=== PATIENT | female | born 1965 | race Caucasian/White ===

== ENCOUNTER 2023-02-17 08:41 | Outpatient (CLI) | payer BC | END 2023-02-17 23:59 | disposition home or self-care (01) | LOC: VAS 08:41 | PROVIDERS: ATTEND Specialist | DX: I70.0 Atherosclerosis of aorta (principal) | CPT/HCPCS: 93978 ==

== ENCOUNTER 2023-03-24 10:33 | Emergency (ER) | payer BC ==
[~2023-03-24] VITALS: Ht 170.2 cm; Wt 47.7 kg
[2023-03-24 11:02] VITALS: TEMP 99.3
[2023-03-24 12:33] LABS: EOSINOPHILS % (AUTO) 0.1 % (0-6); HEMOGLOBIN 15.8 g/dl (12.0-16.0); LYMPHOCYTES # (AUTO) 0.6 X10'3 (1.1-4.8); MEAN CORPUSCULAR HEMOGLOBIN 26.9 PG (27.0-31.0); MEAN CORPUSCULAR HGB CONC 32.6 g/dL (33.0-36.5); MONOCYTES # (AUTO) 0.5 X10'3 (0-0.9); NEUTROPHILS # (AUTO) 8.5 X10'3 (1.8-7.7); RED CELL DISTRIBUTION WIDTH 14.7 % (11.5-14.5)
[2023-03-24 12:34] LABS: BASOPHILS % (AUTO) 0.5 % (0-1); HEMATOCRIT 48.5 % (35.0-45.0); LYMPHOCYTES % (AUTO) 6.6 % (21-51); MEAN CORPUSCULAR VOLUME 82.3 FL (78-98); MONOCYTES % (AUTO) 5.3 % (2-12); NEUTROPHILS % (AUTO) 87.5 % (42-75); PLATELET COUNT 269 X10'3 (140-440); RED BLOOD COUNT 5.89 X10'6 (4.20-5.60); WHITE BLOOD COUNT 9.7 X10'3 (4.5-11.0)
[2023-03-24 13:13] LABS: ALANINE AMINOTRANSFERASE 99 U/L (12-78); ALBUMIN 3.1 G/DL (3.4-5.0); ALBUMIN/GLOBULIN RATIO 0.7 (1.1-1.5); ALKALINE PHOSPHATASE 335 IU/L (46-116); ANION GAP 13 (8-16); ASPARTATE AMINO TRANSFERASE 280 U/L (10-37); BILIRUBIN,TOTAL 1.1 MG/DL (0.1-1.0); BLOOD UREA NITROGEN 13 MG/DL (7-18); BUN/CREATININE RATIO 18.3 (10.0-20.0); CALCIUM 9.5 MG/DL (8.5-10.1); CHLORIDE 97 MMOL/L (99-107); CREATININE 0.71 MG/DL (0.40-0.90); GLUCOSE 81 MG/DL (70-104); LIPASE < 50 U/L (73-393); POTASSIUM 4.5 MMOL/L (3.5-5.1); SODIUM 132 MMOL/L (135-145); TOTAL CARBON DIOXIDE 21.8 MMOL/L (24-32); TOTAL PROTEIN 7.3 G/DL (6.4-8.2); eCRCL 64 ML/MIN; eGFR 84 ML/MIN
[2023-03-24 13:57] VITALS: BP 133/87; PULSE 119; RESP 16; O2SAT 96
[2023-03-24] MEDS ORDERED: PEG 3350/Na sulf,bicarb,Cl/KCl oral sol 4 liter bottle PO ONE (15:05)
[2023-03-24] MEDS ORDERED: glycerin ADULT rectal suppository RC ONE (15:05)
[2023-03-24 17:25] LABS: PLATELET ESTIMATE NORMAL; TOTAL CELLS COUNTED 100
[2023-03-24 17:29] LABS: SCHISTOCYTES FEW
== END 2023-03-24 16:02 | disposition home or self-care (01) ==
LOC: ER 10:34
DX: K59.00 Constipation, unspecified (principal); Z88.1 Allergy status to other antibiotic agents
CPT/HCPCS: 36415; 74018; 80053; 83690; 85007; 85025; 99284